=== PATIENT | female | born 1965 | race Two or more races ===

== ENCOUNTER 2018-03-16 16:14 | Emergency (ER) | payer BC ==
[2018-03-16 17:01] LABS: ABS Basophils 0.1 10^3/ul (0-0.2); ABS Eosinophils 0 10^3/ul (0-0.6); ABS Lymphocytes 2.9 10^3/ul (1.0-4.8); ABS Monocytes 0.8 10^3/ul (0-0.8); ABS Neutrophils 4.7 10^3/ul (1.5-7.7); ABS Nucleated RBC 0 10^3/ul; Eosinophil % 0.6 % (0-6); Hematocrit 43 % (35-47); Hemoglobin 14.4 g/dl (12.0-16.0); Lymphocyte % 33.7 % (25-47); Mean Corpuscular HGB Conc 34 g/dl (31-36); Mean Corpuscular Hemoglobin 26 pg (27-31); Mean Corpuscular Volume 78 fL (80-97); Mean Platelet Volume 9.6 um3 (7.4-10.4); Nucleated Red Blood Cells % 0.1; Platelet Count 178 10^3/ul (150-450); Red Cell Distribution Width 17 % (10.5-15); White Blood Count 8.5 10^3/ul (3.5-10.8)
[2018-03-16 17:11] LABS: INR 0.97 (0.77-1.02)
[2018-03-16 17:20] LABS: EGFR Non-African American 90.5 (>60)
--- NOTE | 2018-03-16 17:27 | ED ---
HPI Chest Pain - HPI Summary HPI Summary: C/O LEFT SIDE CHEST PAIN, SOB, GALVAN, NECK PAIN, NAUSEA X 2 DAYS. CP NEAR LEFT SHOULDER, MILD, INTERMITTENT, LASTS SECONDS AT A TIME, WORSE IN AM AND WITH MOVEMENT OF LEFT ARM. SOB INTERMITTENT, RANDOM ONSET, NOT ALWAYS WITH ONSET OF CP. GALVAN IS DIFFUSE, 8/10, CONSTANT, THROBBING, NO PHOTOSENSITIVITY. HX OF GALVAN, SIMILAR TO THIS BUT NOT INTENSE. NECK PAIN IS PAIN WITH ROTATION, NOT FLEXION OR EXTENSION. STATES LARGE INC IN RECENT STRESS LEVELS. DENIES FEVER, EAR PAIN, VISION CHNAGE, FOCAL DEFICITS, SPEECH CHNAGE, COUGH, SORE THROAT, V/D , ABDO PAIN, CHNAGE IN URINE OR BM. MED HX = HTN. NON SMOKER, DERNIES REGULAR ETOH, RECREATIONAL DRUG USE. DENIES HX OF BLOOD CLOTS, ESTROGEN SUPPLEMENTS, RECENT SURGERY OR TRAUMA, UNILATERAL LEG PAIN, HX OF CANCER, HEMOPTYSIS, . - History of Current Complaint Chief Complaint: EDChestPainROMI Time Seen by Provider: 03/16/18 16:38 Hx Obtained From: Patient Onset/Duration: Started Days Ago Timing: Intermittent, Lasting Seconds Initial Severity: Mild Current Severity: Mild Pain Intensity: 4 Pain Scale Used: 0-10 Numeric Chest Pain Location: Diffuse Chest Pain Radiates To:: Shoulder Aggravating Factor(s): Movement Alleviating Factor(s): Nothing - Allergy/Home Medications Allergies/Adverse Reactions: Allergies Allergy/AdvReac Type Severity Reaction Status Date / Time No Known Allergies Allergy Verified 03/16/18 16:16 PMH/Surg Hx/FS Hx/Imm Hx Endocrine/Hematology History: Denies: Hx Anticoagulant Therapy Cardiovascular History: Reports: Hx Hypertension History: Denies: Hx Dialysis Neurological History: Denies: Hx CVA Infectious Disease History: No Infectious Disease History: Denies: Traveled Outside the [place] in Last 30 Days - Social History Alcohol Use: Occasionally Hx Substance Use: No Hx Tobacco Use: No Review of Systems Constitutional: Negative Eyes: Negative ENT: Negative Positive: Chest Pain Positive: Shortness Of Breath Positive: Nausea Genitourinary: Negative Musculoskeletal: Negative Skin: Negative Positive: Headache Psychological: Normal All Other Systems Reviewed And Are Negative: Yes Physical Exam - Summary Physical Exam Summary: TTP ALONG BILAT STERNOCLEIDOMASTOID MUSCLES AND BILAT TRAPEZIUS. Left shoulder pain reproducible with palpation of trapezius and muscles of left shoulder. Triage Information Reviewed: Yes Vital Signs On Initial Exam: Initial Vitals Temp Pulse Resp BP Pulse Ox 97.8 F 126 18 175/124 99 03/16/18 16:16 03/16/18 16:16 03/16/18 16:16 03/16/18 16:16 03/16/18 16:16 Vital Signs Reviewed: Yes Appearance: Positive: Well-Appearing Skin: Positive: Warm Head/Face: Positive: Normal Head/Face Inspection Eyes: Positive: Normal Neck: Positive: Supple, Tenderness @ Respiratory/Lung Sounds: Positive: Clear to Auscultation Cardiovascular: Positive: Normal Abdomen Description: Positive: Nontender Musculoskeletal: Positive: Normal Neurological: Positive: Normal Psychiatric: Positive: Normal AVPU Assessment: Alert - [place] Coma Scale Best Eye Response: 4 - Spontaneous Best Motor Response: 6 - Obeys Commands Best Verbal Response: 5 - Oriented Coma Scale Total: 15 Diagnostics - Vital Signs Vital Signs Temp Pulse Resp BP Pulse Ox 03/16/18 16:19 180/115 03/16/18 16:16 97.8 F 126 18 175/124 99 - Laboratory Lab Results: Lab Results 03/16/18 03/16/18 03/16/18 Range/Units 16:50 16:50 16:50 WBC 8.5 (3.5-10.8) 10^3/ul RBC 5.50 H (4.00-5.40) 10^6/ul Hgb 14.4 (12.0-16.0) g/dl Hct 43 (35-47) % MCV 78 L (80-97) fL MCH 26 L (27-31) pg MCHC 34 (31-36) g/dl RDW 17 H (10.5-15) % Plt Count 178 (150-450) 10^3/ul MPV 9.6 (7.4-10.4) um3 Neut % (Auto) 55.8 (38-83) % Lymph % (Auto) 33.7 (25-47) % [place] % (Auto) 8.9 H (0-7) % Eos % (Auto) 0.6 (0-6) % Baso % (Auto) 1.0 (0-2) % Absolute Neuts (auto) 4.7 (1.5-7.7) 10^3/ul Absolute Lymphs (auto) 2.9 (1.0-4.8) 10^3/ul Absolute Monos (auto) 0.8 (0-0.8) 10^3/ul Absolute Eos (auto) 0 (0-0.6) 10^3/ul Absolute Basos (auto) 0.1 (0-0.2) 10^3/ul Absolute Nucleated RBC 0 10^3/ul Nucleated RBC % 0.1 INR (Anticoag Therapy) 0.97 (0.77-1.02) D-Dimer, Quantitative < 200 (Less Than 230) ng/mL Sodium 140 (135-145) mmol/L Potassium 3.2 L (3.5-5.0) mmol/L Chloride 103 (101-111) mmol/L Carbon Dioxide 27 (22-32) mmol/L Anion Gap 10 (2-11) mmol/L BUN 12 (6-24) mg/dL Creatinine 0.68 (0.51-0.95) mg/dL Est GFR ( Amer) 109.5 (>60) Est GFR (Non-Af Amer) 90.5 (>60) BUN/Creatinine Ratio 17.6 (8-20) Glucose 131 H (70-100) mg/dL Calcium 9.6 (8.6-10.3) mg/dL Total Bilirubin 0.50 (0.2-1.0) mg/dL AST 74 H (13-39) U/L ALT 95 H (7-52) U/L Alkaline Phosphatase 81 (34-104) U/L Troponin I Pending C-Reactive Protein 5.73 (<8.01) mg/L Total Protein 7.8 (6.4-8.9) g/dL Albumin 4.2 (3.2-5.2) g/dL Globulin 3.6 (2-4) g/dL Albumin/Globulin Ratio 1.2 (1-3) Lipase 38 (11.0-82.0) U/L TSH Pending Result Diagrams: 03/16/18 16:50 03/16/18 16:50 Lab Statement: Any lab studies that have been ordered have been reviewed, and results considered in the medical decision making process. - Radiology CXR Xray Interpretation: No Acute Changes Radiology Interpretation Completed By: Radiologist - EKG 1 Cardiac Rate: Tachycardia EKG Rhythm: Sinus Tachycardia ST Segment: Non-Specific Ectopy: None Chest Pain Course/Dx - Course Course Of Treatment: C/O LEFT SIDE CHEST PAIN, SOB, GALVAN, NECK PAIN, NAUSEA X 2 DAYS. CP NEAR LEFT SHOULDER, MILD, INTERMITTENT, LASTS SECONDS AT A TIME, WORSE IN AM AND WITH MOVEMENT OF LEFT ARM. SOB INTERMITTENT, RANDOM ONSET, NOT ALWAYS WITH ONSET OF CP. GALVAN IS DIFFUSE, 8/10, CONSTANT, THROBBING, NO PHOTOSENSITIVITY. HX OF GALVAN,SIMILAR TO THIS BUT NOT INTENSE. NECK PAIN IS PAIN WITH ROTATION, NOT FLEXION OR EXTENSION. STATES LARGE INC IN RECENT STRESS LEVELS. DENIES FEVER, EAR PAIN, VISION CHNAGE, FOCAL DEFICITS, SPEECH CHNAGE, COUGH, SORE THROAT, V/D, ABDO PAIN, CHNAGE IN URINE OR BM. MED HX = HTN. NON SMOKER, DERNIES REGULAR ETOH, RECREATIONAL DRUG USE. DENIES HX OF BLOOD CLOTS, ESTROGEN SUPPLEMENTS, RECENT SURGERY OR TRAUMA, UNILATERAL LEG PAIN, HX OF CANCER, HEMOPTYSIS, . Physical exam:TTP ALONG BILAT STERNOCLEIDOMASTOID MUSCLES AND BILAT TRAPEZIUS. Left shoulder pain reproducible with palpation of trapezius and muscles of left shoulder. Vital signs normal other than a couple episodes of tachycardia. Labs unremarkable. Imaging unremarkable. Serial troponins negative. Patient's symptoms reproducible. Most likely diagnosis is anxiety and muscle spasm. - Diagnoses Provider Diagnoses: Tension headache, Anxiety, Muscle spasm Discharge - Sign-Out/Discharge Documenting (check all that apply): Patient Departure - Discharge Plan Condition: Stable Disposition: HOME Prescriptions: Diazepam TAB(*) [Valium TAB(*)] 5 mg PO TID PRN #5 tab MDD 3 tabs PRN Reason: Pain Patient Education Materials: Tension Headache (ED), Muscle Spasm (ED), Anxiety (ED) Forms: *Work Release Referrals: No Primary Care Phys,NOPCP [Primary Care Provider] - [facility] [Outside] Additional Instructions: [facility] with [facility]. Return to the ED for any new or worsening symptoms - Billing Disposition and Condition Condition: STABLE Disposition: Home
--- NOTE | 2018-03-16 17:29 | RAD ---
INDICATION: Chest pain COMPARISON: None TECHNIQUE: PA and lateral dual-energy views were obtained. FINDINGS: Bones/Soft Tissues: There are no acute bony findings. Cardiomediastinal: The cardiomediastinal silhouette is normal. Lungs: There are no infiltrates. Pleura: There are no pleural effusions. Other: None IMPRESSION: NO ACTIVE DISEASE.
[2018-03-16 20:54] VITALS: BP 150/88
== END 2018-03-16 20:52 | disposition home or self-care (01) ==
LOC: ED 16:14
DX: G44.209 Tension-type headache, unspecified, not intractable (principal); F41.9 Anxiety disorder, unspecified; M62.838 Other muscle spasm; R07.9 Chest pain, unspecified; R06.02 Shortness of breath; R11.0 Nausea
CPT/HCPCS: 36415; 71046; 80053; 83690; 83880; 84443; 84484; 85025; 85379; 85610; 86140; 93005; 99282